=== PATIENT | male | born 1985 | race Caucasian/White ===

== ENCOUNTER 2020-07-26 02:10 | Emergency (ER) | payer OTHER ==
[2020-07-26] MEDS ORDERED: ONDANSETRON 4 MG/2 ML VIAL IVP STA ×2 (02:15→02:58)
[2020-07-26 02:25] LABS: BASOPHILS # (AUTO) 0.1 10^3/uL (0.0-0.1); BASOPHILS % (AUTO) 1.2 %; EOSINOPHILS # (AUTO) 0.3 10^3/uL (0.0-0.7); HGB - HEMOGLOBIN 16.6 g/dL (14.0-18.0); LYMPHOCYTES # (AUTO) 3.7 10^3/uL (1.5-3.5); LYMPHOCYTES % (AUTO) 39.1 %; MEAN CORPUSCULAR VOLUME 85.3 fL (80.0-94.0); MEAN PLATELET VOLUME 9.9 fL (7.4-11.4); MONOCYTES # (AUTO) 0.9 10^3/uL (0.0-1.0); MONOCYTES % (AUTO) 9.5 %; NEUTROPHILS # (AUTO) 4.4 10^3/uL (1.5-6.6); NEUTROPHILS % (AUTO) 46.6 %; PLT - PLATELET COUNT 255 10^3/uL (130-450); RED BLOOD COUNT 5.72 10^6/uL (4.70-6.10); RED CELL DISTRIBUTION WIDTH 12.3 % (12.0-15.0); WHITE BLOOD COUNT 9.4 x10^3/uL (4.8-10.8)
--- NOTE | 2020-07-26 02:30 | ED Physician Documentation ---
PD HPI NVD - Stated complaint Stated Complaint: VOMITING - History obtained from History obtained from: Patient - History of Present Illness Timing - onset: Enter time (00:00 (midnight)), Today Timing - details: Abrupt onset Associated symptoms: No: Fever, Abdominal pain Contributing factors: Travel (visiting [place] from [place] (came to [place] 3 weeks ago)) Similar symptoms before: Other (patient says he had similar symptoms once before) Recently seen: Not recently seen - Additonal information Additional information: patient awoke at approximately midnight with chills, vomiting. He says he felt well during the day. He says he had some neck pain/stiffness earlier in the day but this has resolved. He used marijuana earlier tonight. He has used marijuana before but has only had similar symptoms one other time and he says that episode was attributed to alcohol intake (although he says he probably also smoked marijuana prior to that episode as well) Review of Systems Constitutional: reports: Chills, Myalgias, Sweats. denies: Fever Cardiac: reports: Reviewed and negative Respiratory: reports: Reviewed and negative GI: reports: Nausea, Vomiting. denies: Abdominal Pain, Abdominal Swelling, Constipation, Diarrhea Skin: denies: Rash PD PAST MEDICAL HISTORY - Past Medical History Past Medical History: No - Past Surgical History Past Surgical History: No - Present Medications Home Medications: Ambulatory Orders Medication Instructions Recorded Confirmed Ondansetron Odt [Zofran] 4 mg TL Q6H PRN #10 tablet 07/26/20 Pantoprazole Sodium [Protonix] 20 mg PO BID #60 tablet. 07/26/20 Sucralfate [Carafate] 1 gm PO ACHS #60 tablet 07/26/20 - Allergies Allergies/Adverse Reactions: Allergies Allergy/AdvReac Type Severity Reaction Status Date / Time Penicillins Allergy Unknown Verified 07/26/20 12:59 PD ED PE NORMAL - Vitals Vital signs reviewed: Yes - General General: Alert and oriented X 3, Well developed/nourished, Other (diaphoretic, pale, listless; appears uncomfortable and vomits twice during H+P) - Neck Neck: Supple, no meningeal sign - Cardiac Cardiac: RRR, No murmur - Respiratory Respiratory: No respiratory distress, Clear bilaterally - Abdomen Abdomen: Soft, Non tender - Back Back: No CVA TTP - Derm Derm: Other (pale) Results - Vitals Vitals: Vital Signs - 24 hr 07/26/20 07/26/20 07/26/20 02:10 02:30 03:00 Temperature Heart Rate 85 74 82 Respiratory 24 24 20 Rate Blood Pressure 153/109 H 153/109 H 135/98 H O2 Saturation 99 100 100 07/26/20 07/26/20 07/26/20 03:29 04:00 04:30 Temperature 36.6 C Heart Rate 71 72 77 Respiratory 18 18 18 Rate Blood Pressure 151/109 H 137/88 H 144/105 H O2 Saturation 99 100 99 07/26/20 06:18 Temperature 36.0 C L Heart Rate 76 Respiratory 18 Rate Blood Pressure 163/94 H O2 Saturation 95 Oxygen O2 Source Room air - Labs Labs: Laboratory Tests 07/26/20 07/26/20 07/26/20 02:20 02:20 03:00 WBC 9.4 RBC 5.72 Hgb 16.6 Hct 48.8 MCV 85.3 MCH 29.0 MCHC 34.0 RDW 12.3 Plt Count 255 MPV 9.9 Neut # (Auto) 4.4 Lymph # (Auto) 3.7 H Christian # (Auto) 0.9 Eos # (Auto) 0.3 Baso # (Auto) 0.1 Absolute Nucleated RBC 0.00 Nucleated RBC % 0.0 Sodium 141 Potassium 3.6 Chloride 103 Carbon Dioxide 24 Anion Gap 14.0 H BUN 14 Creatinine 1.0 Estimated GFR (MDRD) 86 L Glucose 168 H Calcium 9.7 Total Bilirubin 1.0 AST 35 ALT 54 Alkaline Phosphatase 65 Total Protein 8.0 Albumin 5.1 Globulin 2.9 Albumin/Globulin Ratio 1.8 Lipase 58 H Urine Color Urine Clarity Urine pH Ur Specific [place] Urine Protein Urine Glucose (UA) Urine Ketones Urine Occult Blood Urine Nitrite Urine Bilirubin Urine Urobilinogen Ur Leukocyte Esterase Ur Microscopic Review Urine Culture Comments Nasal Adenovirus (PCR) NOT DETECTED Nasal B. parapertussis DNA (PCR) NOT DETECTED Nasal Coronavir 229E PCR NOT DETECTED Nasal Coronavir HKU1 PCR NOT DETECTED Nasal Coronavir NL63 PCR NOT DETECTED Nasal Coronavir OC43 PCR NOT DETECTED Nasal Enterovir/Rhinovir PCR NOT DETECTED Nasal Influenza B PCR NOT DETECTED Nasal Influenza A PCR NOT DETECTED Nasal Parainfluen 1 PCR NOT DETECTED Nasal Parainfluen 2 PCR NOT DETECTED Nasal Parainfluen 3 PCR NOT DETECTED Nasal Parainfluen 4 PCR NOT DETECTED Nasal RSV (PCR) NOT DETECTED Nasal B.pertussis DNA PCR NOT DETECTED Nasal C.pneumoniae (PCR) NOT DETECTED [place] Human Metapneumo PCR NOT DETECTED Nasal M.pneumoniae (PCR) NOT DETECTED Nasal SARS-CoV-2 (PCR) NOT DETECTED 07/26/20 05:10 WBC RBC Hgb Hct MCV MCH MCHC RDW Plt Count MPV Neut # (Auto) Lymph # (Auto) Christian # (Auto) Eos # (Auto) Baso # (Auto) Absolute Nucleated RBC Nucleated RBC % Sodium Potassium Chloride Carbon Dioxide Anion Gap BUN Creatinine Estimated GFR (MDRD) Glucose Calcium Total Bilirubin AST ALT Alkaline Phosphatase Total Protein Albumin Globulin Albumin/Globulin Ratio Lipase Urine Color YELLOW Urine Clarity CLEAR Urine pH 6.0 Ur Specific [place] 1.025 Urine Protein NEGATIVE Urine Glucose (UA) NEGATIVE Urine Ketones NEGATIVE Urine Occult Blood NEGATIVE Urine Nitrite NEGATIVE Urine Bilirubin NEGATIVE Urine Urobilinogen 0.2 (NORMAL) Ur Leukocyte Esterase NEGATIVE Ur Microscopic Review NOT INDICATED Urine Culture Comments NOT INDICATED Nasal Adenovirus (PCR) Nasal B. parapertussis DNA (PCR) Nasal Coronavir 229E PCR Nasal Coronavir HKU1 PCR Nasal Coronavir NL63 PCR Nasal Coronavir OC43 PCR Nasal Enterovir/Rhinovir PCR Nasal Influenza B PCR Nasal Influenza A PCR Nasal Parainfluen 1 PCR Nasal Parainfluen 2 PCR Nasal Parainfluen 3 PCR Nasal Parainfluen 4 PCR Nasal RSV (PCR) Nasal B.pertussis DNA PCR Nasal C.pneumoniae (PCR) [place] Human Metapneumo PCR Nasal M.pneumoniae (PCR) Nasal SARS-CoV-2 (PCR) PD MEDICAL DECISION MAKING - ED course Complexity details: reviewed results, re-evaluated patient, considered different ial, d/w patient ED course: patient is pale and diaphoretic on presentation with frequent emesis. Reassuring blood test results. He did not have any appreciable response to IV zofran x2 doses. Given marijuana use tonight just prior to symptom onset, cannabis hyperemsis considered and thus given 5mg IV haldol. He felt some "twitchy" (per patient) sensation and thus he was then given 25mg IV benadryl. These interventions had excellent effect; he fell asleep although remained easily awoken to voice. His vomiting resolved and he only had mild residual nausea. He was able to ambulate to/from bathroom without difficulty or assistance. He is comfortable with d/c home. He was given 2 liters NS IV during ED stay Departure - Departure Disposition: Home, Self Care Clinical Impression: Vomiting Qualifiers: Vomiting type: unspecified Vomiting Intractability: non-intractable Nausea presence: with nausea Qualified Code(s): R11.2 - Nausea with vomiting, unspecified Condition: Good Instructions: ED Nausea Vomiting Prescriptions: Ondansetron Odt [Zofran] 4 mg TL Q6H PRN #10 tablet PRN Reason: Nausea / Vomiting Discharge Date/Time: 07/26/20 06:34
[2020-07-26 02:38] LABS: ALBUMIN 5.1 g/dL (3.2-5.5); ALBUMIN/GLOBULIN RATIO 1.8 (1.0-2.2); CALCIUM 9.7 mg/dL (8.5-10.3)
[2020-07-26] MEDS ORDERED: SODIUM CHLORIDE 0.9% 1,000 ML IV STA ×2 (02:58→04:32)
[2020-07-26] MEDS ORDERED: HALOPERIDOL 5 MG/ML VIAL IVP STA (03:32)
[2020-07-26] MEDS ORDERED: diphenhydrAMINE INJ 50 MG/ML VIAL IVP STA (03:49)
[2020-07-26 03:58] LABS: C. PNEUMONIAE- RESP PCR PANEL NOT DETECTED
[2020-07-26 05:22] LABS: BILIRUBIN,URINE NEGATIVE (NEGATIVE); GLUCOSE, URINE (UA) NEGATIVE (NEGATIVE); KETONES,URINE (UA) NEGATIVE (NEGATIVE); LEUKOCYTE ESTERASE, URINE NEGATIVE (NEGATIVE); NITRITE,URINE NEGATIVE (NEGATIVE); OCCULT BLOOD,URINE NEGATIVE (NEGATIVE); PROTEIN,URINE NEGATIVE (NEGATIVE); UROBILINOGEN,URINE 0.2 (NORMAL) E.U./dL (NORMAL)
[2020-07-26 05:23] LABS: CLARITY,URINE CLEAR (CLEAR)
[2020-07-26 06:19] VITALS: BP 163/94
== END 2020-07-26 06:34 | disposition home or self-care (01) ==
LOC: ED 02:10
DX: R11.2 Nausea with vomiting, unspecified (principal); F12.90 Cannabis use, unspecified, uncomplicated; Z20.828 Contact with and (suspected) exposure to other viral communicable diseases
CPT/HCPCS: 0202U; 36415; 80053; 81001; 81003; 83690; 85025; 87086

== ENCOUNTER 2020-07-26 12:45 | Emergency (ER) | payer OTHER ==
[2020-07-26] MEDS ORDERED: ONDANSETRON 4 MG/2 ML VIAL IVP STA (14:13)
[2020-07-26] MEDS ORDERED: SODIUM CHLORIDE 0.9% 1,000 ML IV STA (14:13)
--- NOTE | 2020-07-26 14:22 | ED Physician Documentation ---
History of Present Illness - Stated complaint Stated Complaint: VOMITING BLOOD - Chief complaint Chief Complaint: Abd Pain - History obtained from History obtained from: Patient - Additonal information Additional information: 35-year-old male presents emergency department for evaluation of vomiting bright red blood. He was seen in this ED very early this a.m. and ultimately discharged. He reports that when he went home he did take the Zofran as instructed. However at about 9:00 he began vomiting peak output but as he vomited again at 10 and then at noon the it was bright red blood. He estimates about a cup worth. He denies any melena or hematochezia. Patient denies any history of previous GI bleed. He is not anticoagulated. He rarely takes NSAID medication. He denies alcohol use. He occasionally smokes cannabis. He denies any history of hypertension or diabetes. He takes no prescribed medications. He has no pertinent past surgical history Review of Systems Constitutional: reports: Reviewed and negative Ears: reports: Reviewed and negative Nose: reports: Reviewed and negative Throat: reports: Reviewed and negative Cardiac: reports: Reviewed and negative Respiratory: reports: Reviewed and negative GI: reports: Nausea, Vomiting, Hematemesis. denies: Abdominal Pain, Bloody / black stool : reports: Reviewed and negative Skin: reports: Reviewed and negative Musculoskeletal: reports: Reviewed and negative Neurologic: reports: Reviewed and negative PD PAST MEDICAL HISTORY - Past Medical History Cardiovascular: None Respiratory: None Neuro: None Endocrine/Autoimmune: None GI: None : None HEENT: None Psych: None Musculoskeletal: Chronic back pain Derm: None - Past Surgical History Past Surgical History: No - Present Medications Home Medications: Ambulatory Orders Medication Instructions Recorded Confirmed Ondansetron Odt [Zofran] 4 mg TL Q6H PRN #10 tablet 07/26/20 Pantoprazole Sodium [Protonix] 20 mg PO BID #60 tablet. 07/26/20 Sucralfate [Carafate] 1 gm PO ACHS #60 tablet 07/26/20 - Allergies Allergies/Adverse Reactions: Allergies Allergy/AdvReac Type Severity Reaction Status Date / Time Penicillins Allergy Unknown Verified 07/26/20 12:59 - Social History Does the pt smoke?: No Smoking Status: Never smoker Does the pt drink ETOH?: No PD ED PE EXPANDED - General General: Alert, No acute distress, Well developed/nourished - HEENT HEENT: Atraumatic, PERRL, EOMI - Neck Neck: Supple w/out meningeal sx. No: Adenopathy - Cardiac Cardiac: Regular Rate, Regular Rhythm, Radial strong equal, Cap refill < 2 sec - Respiratory Respiratory: Clear to ausultation [place]. No: Distress, Labored - Abdomen Abdomen: Normal Bowel sounds. No: Tender to palpation - Derm Derm: Normal color - Extremities Extremities: Normal - Neuro Neuro: Alert and Oriented X 3, CNII-XII intact - GCS Eye Opening: Spontaneous Motor: Obeys Commands Verbal: Oriented Total: 15 Results - Vitals Vitals: Vital Signs - 24 hr 07/26/20 07/26/20 07/26/20 12:59 13:02 15:02 Temperature 36.3 C L 36.5 C 36.5 C Heart Rate 98 86 88 Respiratory 18 16 16 Rate Blood Pressure 114/75 114/75 140/90 H O2 Saturation 97 98 100 Oxygen O2 Source Room air - Labs Labs: Laboratory Tests 07/26/20 07/26/20 07/26/20 14:20 14:20 14:25 WBC 13.9 H RBC 5.63 Hgb 16.8 Hct 47.5 MCV 84.4 MCH 29.8 MCHC 35.4 RDW 12.5 Plt Count 250 MPV 10.1 Neut # (Auto) 12.2 H Lymph # (Auto) 0.9 L [place] # (Auto) 0.7 Eos # (Auto) 0.0 Baso # (Auto) 0.0 Absolute Nucleated RBC 0.00 Nucleated RBC % 0.0 Sodium 140 Potassium 4.4 Chloride 101 Carbon Dioxide 25 Anion Gap 14.0 H BUN 11 Creatinine 1.0 Estimated GFR (MDRD) 86 L Glucose 114 H Calcium 9.7 Total Bilirubin 0.8 AST 38 ALT 55 Alkaline Phosphatase 58 Total Protein 8.3 H Albumin 5.2 Globulin 3.1 Albumin/Globulin Ratio 1.7 Lipase 28 Urine Color YELLOW Urine Clarity CLEAR Urine pH 5.5 Ur Specific [place] >=1.030 H Urine Protein 100 H Urine Glucose (UA) NEGATIVE Urine Ketones 15 H Urine Occult Blood SMALL H Urine Nitrite NEGATIVE Urine Bilirubin NEGATIVE Urine Urobilinogen 0.2 (NORMAL) Ur Leukocyte Esterase NEGATIVE Urine RBC 6-10 H Urine WBC 4-5 Ur Squamous Epith Cells FEW Squamous Urine Bacteria None Seen Ur Microscopic Review INDICATED Urine Culture Comments NOT INDICATED PD MEDICAL DECISION MAKING - ED course Complexity details: reviewed results, re-evaluated patient, considered differential, d/w patient, d/w sales consultant (Wiliam Coronado MS (surg)) ED course: 35-year-old male presents to the emergency department with chief complaint of vomiting approximately 1 cup of bright red blood. He was seen in this emergency department earlier this a.m. and discharged home with a prescription of Zofran. On exam he appears remarkably well. He denies any abdominal pain. He has no fever and is normotensive. His hemoglobin is quite stable in comparison to the one obtained earlier this a.m. This gentleman does deny NSAID as well as alcohol use. This case was discussed with on-call surgeon Dr. Maria. In the long-term he likely needs an EGD. She did offer to have the patient admitted for an EGD in the next 48 hours but the patient declines. At this time he will be discharged home with a prescription for omeprazole as well as Carafate daily. He is planning to return to [place] where he lives. He was advised that when he returns there he should see his primary care provider to request EGD referral. If between now and then he developed suddenly severe abdominal pain, has uncontrolled bright red vomiting or feels that his symptoms are worsening in any way he will return immediately to the ER Departure - Departure Disposition: 01 Home, Self Care Clinical Impression: Upper GI bleed Condition: Stable Record reviewed to determine appropriate education?: Yes Instructions: ED Bleed UGI Stable Prescriptions: Sucralfate [Carafate] 1 gm PO ACHS #60 tablet Pantoprazole Sodium [Protonix] 20 mg PO BID #60 tablet. Comments: Alber mane were seen in the emergency department because you described vomiting bright red blood. This typically means that you are developing an ulcer. I would like you to fill the prescription for the Protonix and begin taking immediately. I would also like you to fill the prescription for the Carafate and take once daily at night. In the long-term you need an EGD which is a surgical procedure in which they place a flexible camera through your mouth and into your stomach to look for a source of bleeding. Please discuss this ED visit with your primary doctor. He/she can make the appropriate referral. If between now and then you have suddenly severe abdominal pain, have uncontrolled vomiting that is bright red or feel your symptoms are not improving please return immediately to the ER
[2020-07-26 14:34] LABS: BASOPHILS % (AUTO) 0.2 %; HGB - HEMOGLOBIN 16.8 g/dL (14.0-18.0); LYMPHOCYTES # (AUTO) 0.9 10^3/uL (1.5-3.5); LYMPHOCYTES % (AUTO) 6.8 %; MEAN CORPUSCULAR HEMOGLOBIN 29.8 pg (27.0-31.0); MEAN CORPUSCULAR HGB CONC 35.4 g/dL (32.0-36.0); MEAN CORPUSCULAR VOLUME 84.4 fL (80.0-94.0); MEAN PLATELET VOLUME 10.1 fL (7.4-11.4); MONOCYTES # (AUTO) 0.7 10^3/uL (0.0-1.0); MONOCYTES % (AUTO) 4.7 %; NEUTROPHILS # (AUTO) 12.2 10^3/uL (1.5-6.6); NEUTROPHILS % (AUTO) 87.9 %; PLT - PLATELET COUNT 250 10^3/uL (130-450); RED BLOOD COUNT 5.63 10^6/uL (4.70-6.10); RED CELL DISTRIBUTION WIDTH 12.5 % (12.0-15.0); WHITE BLOOD COUNT 13.9 x10^3/uL (4.8-10.8)
[2020-07-26 14:35] LABS: BILIRUBIN,URINE NEGATIVE (NEGATIVE); GLUCOSE, URINE (UA) NEGATIVE (NEGATIVE); KETONES,URINE (UA) 15 mg/dL (NEGATIVE); LEUKOCYTE ESTERASE, URINE NEGATIVE (NEGATIVE); NITRITE,URINE NEGATIVE (NEGATIVE); OCCULT BLOOD,URINE SMALL (NEGATIVE); PH,URINE 5.5 PH (5.0-7.5); PROTEIN,URINE 100 mg/dL (NEGATIVE); UROBILINOGEN,URINE 0.2 (NORMAL) E.U./dL (NORMAL)
[2020-07-26 14:38] LABS: CLARITY,URINE CLEAR (CLEAR)
[2020-07-26 14:43] LABS: BACTERIA,URINE None Seen /HPF (None Seen); SQUAMOUS EPITHELIAL CELL,UR FEW Squamous (<= Few)
[2020-07-26 14:47] LABS: ALBUMIN 5.2 g/dL (3.2-5.5); ALBUMIN/GLOBULIN RATIO 1.7 (1.0-2.2); BILIRUBIN,TOTAL 0.8 mg/dL (0.2-1.0); CALCIUM 9.7 mg/dL (8.5-10.3); TOTAL PROTEIN 8.3 g/dL (6.7-8.2)
[2020-07-26] MEDS ORDERED: PANTOPRAZOLE 40 MG VIAL IVP STA (14:55)
[2020-07-26] MEDS ORDERED: SUCRALFATE 1 GM/10 ML UDC PO STA (14:55)
[2020-07-26 15:19] VITALS: BP 140/90
== END 2020-07-26 15:31 | disposition home or self-care (01) ==
LOC: ED 12:45
DX: K92.0 Hematemesis (principal); F12.90 Cannabis use, unspecified, uncomplicated; Z20.828 Contact with and (suspected) exposure to other viral communicable diseases
CPT/HCPCS: 0202U; 36415; 80053; 81001; 81003; 83690; 85025; 96361; 96374; 96375; 96376; 99283; 99284; A9270; J1200; 87086